=== PATIENT | female | born 1960 | race African-American/Black ===

== ENCOUNTER 2017-07-25 18:14 | Emergency (ER) | payer OTHER ==
[2017-07-25 18:21] VITALS: BMI 29.2
--- NOTE | 2017-07-25 19:40 | PDOC ---
History of Present Illness - General Chief Complaint: Nausea/Vomiting Stated Complaint: NAUSEA/VOMITING Time Seen by Provider: 07/25/17 19:22 History Source: Patient, Spouse Exam Limitations: No Limitations - History of Present Illness Initial Comments: This is a 56 YOF with h/o mild migraines who p/w two days of generalized weakness and left-sided headache (headache since resolved), and one day of nausea with three episodes of NBNB vomiting and loose stool. She describes the headache as lasting several hours, worse than her normal migraines, and like pressure. She additionally notes fatigue, generalized malaise, hot/cold flashes , sweats, and dry mouth over the past two days. She was seen by her PCP (Dr. Curtis) on Thursday and for a cough and congestion, and on was place on codeine and azithromycin (for possibility of bronchitis or to prevent this from progressing to bronchitis/PNA). She took the azithromycin on Thursday and initially felt better, but on Thursday night she took the codeine at about midnight and shortly after had the onset of nausea, vomiting, and generalized weakness. She denies having taken codeine in the past. She has not had an X-ray or additional workup. Past History - Past Medical History Allergies/Adverse Reactions: Allergies Allergy/AdvReac Type Severity Reaction Status Date / Time codeine Allergy Verified 07/25/17 18:17 Home Medications: Ambulatory Orders Azithromycin 250 mg PO DAILY 07/25/17 Hydrocodone Bit/Homatrop Me-Br [Hydrocodone-Homatropine Syrup] 5 ml PO DAILY 03/02 COPD: No DVT: No - Suicide/Smoking/Psychosocial Hx Smoking History: Never smoked Information on smoking cessation initiated: No Hx Alcohol Use: No Drug/Substance Use Hx: No Substance Use Type: None Review of Systems - Review of Systems Able to Perform ROS?: Yes Constitutional: Yes: Chills, Malaise, Weakness. No: Fever, Unexplained wgt Loss HEENTM: Yes: Nose Congestion. No: Throat Pain Respiratory: Yes: Cough, Wheezing (mild). No: Shortness of Breath Cardiac (ROS): No: Chest Pain, Palpitations ABD/GI: Yes: Nausea, Vomiting, Other (loose stool). No: Constipated : No: Burning, Dysuria Musculoskeletal: No: Back Pain, Neck Pain Integumentary: No: Bruising, Rash Neurological: Yes: Headache (resolved). No: Numbness, Tingling, Weakness, Dizziness Endocrine: No: Unexplained Weight Gain, Unexplained Weight Loss *Physical Exam - Vital Signs Last Vital Signs Temp Pulse Resp BP Pulse Ox 98.7 F 90 18 147/88 100 07/25/17 18:18 07/25/17 18:18 07/25/17 18:18 07/25/17 18:18 07/25/17 18:18 - Physical Exam General Appearance: Yes: Nourished, Appropriately Dressed, Other (well appearing and nontoxic adult female accompanied by ). No: Apparent Distress HEENT: positive: EOMI, JARETH, Normal ENT Inspection, Normal Voice, Hearing Grossly Normal, Other (no sinus ttp). negative: Scleral Icterus (R), Scleral Icterus (L), Nasal Congestion Neck: positive: Trachea midline, Supple. negative: Tender, Rigid Respiratory/Chest: positive: Wheezing (mild left sized expiratory). negative: Respiratory Distress, Accessory Muscle Use, Labored Respiration, Decreased Breath Sounds, Crackles, Rhonchi, Stridor Cardiovascular: positive: Regular Rhythm, Regular Rate. negative: Murmur Gastrointestinal/Abdominal: positive: Normal Bowel Sounds, Flat, Soft. negative : Tender, Organomegaly, Pulsatile Mass, Guarding Musculoskeletal: positive: Normal Inspection. negative: Decreased Range of Motion, Vertebral Tenderness Extremity: positive: Normal Capillary Refill, Normal Inspection, Normal Range of Motion. negative: Tender, Cyanosis Integumentary: positive: Normal Color, Dry, Warm. negative: Erythema, Rash, Bruising Neurologic: positive: servicing manager II-XII NML intact, Fully Oriented, Alert, Normal Mood/ Affect, Normal Response, Motor Strength 5/5. negative: EOM Palsy, Facial Droop , Numbness, Sensory Deficit, Confused, Disoriented Heart Score/ECG Review #1 Sinus rhythm, rate of 76, normal axis and intervals, T wave flattening in aVL. ED Treatment Course - LABORATORY CBC & Chemistry Diagram: 07/25/17 20:18 07/25/17 20:18 Medical Decision Making - Medical Decision Making Patient p/w SOB, cough, chest discomfort, and fever. Initial Vital Signs Temp Pulse Resp BP Pulse Ox 98.7 F 90 18 147/88 100 07/25/17 18:18 0518 18:18 0518 18:18 07/25/17 18:18 07/25/17 18:18 Exam: Well appearing, nontoxic, only abnormality is faint expiratory wheezes on the left DDX IBNLT: PNA, bronchitis, COPD, asthma, CHF, other lung disease, viral URI ( e.g. influenza), laryngitis, tracheitis, etc. W/U ordered: CXR EKG CBCD CMP Mg Phos TX ordered: IVF Zofran SL DuoNeb EKG: NSR, rate 76, normal axis and intervals, no acute disease process CXR: NADP Initial Vital Signs Temp Pulse Resp BP Pulse Ox 98.7 F 90 18 147/88 100 07/25/17 18:18 05 18:18 0518 18:18 05 18:18 05 18:18 Repeat VS: Reassessment: DISCHARGE Workup is not concerning for emergency-level pathology at this time. The decision for disposition is carefully considered with the patient in shared decision making. The patient has gotten significant relief of symptoms with ED medications. She is appropriate for discharge with close outpatient follow up. The patient is comfortable with this plan and will follow up with their PCP on Thursday. They will take Motrin for pain, and she has Zofran at home from prior Rx if needed. She is advised to continue taking the Azithromycin, but to stop the codeine. Return precautions are discussed and they will come back to the ER if necessary. *DC/Admit/Observation/Transfer Diagnosis at time of Disposition: Bronchitis, Generalized weakness Vomiting Qualifiers: Vomiting type: unspecified Vomiting Intractability: non-intractable Nausea presence: with nausea Qualified Code(s): R11.2 - Nausea with vomiting, unspecified - Discharge Dispostion Disposition: HOME Condition at time of disposition: Stable Decision to Admit order: No - Referrals Referrals: Jef Curtis MD [Primary Care Provider] - - Patient Instructions Printed Discharge Instructions: DI for Nausea -- Adult, DI for Acute Bronchitis Additional Instructions: You were seen in the ER for bronchitis. We did blood laboratories, an electrocardiogram, and a chest x-ray. The results suggest that you have bronchitis that needs to be treated with antibiotics. We gave you medication for your symptoms, IV fluids, and a dose of antibiotics here in the ER. After our assessment, we do not believe you are having a medical emergency at this time, and we believe you are safe to go home. Please scrap picker your prescription for antibiotics from your pharmacy and take them as prescribed. Please follow up with your regular PCP doctor in 1-3 days. Call their clinic as soon as possible, tell them you were seen in the ER for bronchitis, and tell them you need an appointment. If you have any new or worsening symptoms, please come back to the ER at any time (24 hours a day), especially for inability to breathe , worsening chest pain, fever, fainting, or other symptoms you cannot control with [id number] medications and your antibiotic. If you are having severe or life threatening symptoms, or symptoms that make it unsafe to drive or have someone drive you, please call 911. - Post Discharge Activity
[2017-07-25] MEDS ORDERED: ONDANSETRON *ODT* 4 MG TABLET SL ONE (19:42)
[2017-07-25] MEDS ORDERED: ONDANSETRON *ODT* 4 MG TABLET ONE (19:47)
--- NOTE | 2017-07-25 19:52 | PDOC ---
Attending Attestation - Resident Resident Name: Adriane Umaña - ED Attending Attestation I have performed the following: I have examined & evaluated the patient, The case was reviewed & discussed with the resident, I agree w/resident's findings & plan - HPI HPI: 07/25/17 19:42 Pt comes with nausea. No other complaints. - Physicial Exam PE: 07/25/17 19:43 Agree with resident exam. - Medical Decision Making 07/25/17 21:55 Pt hydrated and given meds. She is feeling better. Home with PMD follow up. Diagnosis: Nausea NOS; bronchitis/sinusitis <Chely Everett - Last Filed: 07/25/17 21:55> Heart Score/ECG Review - ECG Intrepretation Comment:: 07/25/17 21:22 Completed @21:17:40 Sinus rhythm with premature atrial complexes Minimal voltage criteria for LVH, may be normal variant Borderline ECG Vent. rate 76 bpm GA interval 188 ms QRS duration 86 ms <Moris Oviedo - Last Filed: 07/25/17 21:22>
[2017-07-25] MEDS ORDERED: SODIUM CHLORIDE 0.9% 500 ML INFUS.BAG IV ONE (19:53)
[2017-07-25 20:25] LABS: BASO % 0.7 % (0-2.0); EOS % 0.2 % (0-4.5); HEMATOCRIT 37.3 % (32.4-45.2); HEMOGLOBIN 13.1 GM/dL (10.7-15.3); LYMPH % 18.1 % (8-40); MCH 31.6 pg (25.7-33.7); MCHC 35.1 g/dl (32.0-36.0); MEAN CELL VOLUME 89.9 fl (80-96); MEAN PLT VOLUME 8.5 fl (7.5-11.1); MONO % 2.7 % (3.8-10.2); NEUT % 78.3 % (42.8-82.8); PLATELET COUNT 194 K/MM3 (134-434); RBC 4.15 M/mm3 (3.60-5.2); RDW 13.1 % (11.6-15.6); WHITE BLOOD COUNT 6.4 K/mm3 (4.0-10.0)
[2017-07-25 20:49] LABS: ALBUMIN 4.5 g/dl (3.4-5.0); ALK PHOS 74 U/L (45-117); ANION GAP 6 (8-16); BILIRUBIN,TOTAL 0.4 mg/dL (0.2-1.0); BLOOD UREA NITROGEN 8 mg/dL (7-18); CALCIUM 9.2 mg/dL (8.5-10.1); CHLORIDE 105 mmol/L (98-107); CO2 29 mmol/L (21-32); CREATININE 0.8 mg/dL (0.55-1.02); GLUCOSE,RANDOM 113 mg/dL (74-106); POTASSIUM 3.9 mmol/L (3.5-5.1); SGOT/AST 22 U/L (15-37); SGPT/ALT 27 U/L (12-78); SODIUM 140 mmol/L (136-145); TOT PROT 8.2 g/dl (6.4-8.2)
[2017-07-25 22:16] VITALS: BP 149/79; PULSE 67; TEMP 97.2
--- NOTE | 2017-07-26 13:25 | EKG ---
Test Reason : Blood Pressure : / mmHG Vent. Rate : 076 BPM Atrial Rate : 076 BPM P-R Int : 188 ms QRS Dur : 086 ms QT Int : 378 ms P-R-T Axes : 070 067 064 degrees QTc Int : 425 ms POOR DATA QUALITY, INTERPRETATION MAY BE ADVERSELY AFFECTED SINUS RHYTHM WITH PREMATURE ATRIAL COMPLEXES MINIMAL VOLTAGE CRITERIA FOR LVH, MAY BE NORMAL VARIANT BORDERLINE ECG NO PREVIOUS ECGS AVAILABLE Confirmed by LILA PEREZ, JUSTIN ([id number]) on 07/26/2017 1:25:03 PM Referred By: Confirmed By:JUSTIN SHARP MD
== END 2017-07-25 22:16 | disposition home or self-care (01) ==
LOC: JER 18:14
DX: J40 Bronchitis, not specified as acute or chronic (principal); R11.2 Nausea with vomiting, unspecified
CPT/HCPCS: 36415; 71046-TC-FY; 80053; 83735; 84100; 85025; 93005; 93010; 99283-25; Q0162